=== PATIENT | female | born 1980 | race Caucasian/White ===

== ENCOUNTER → 2018-02-05 11:11 | Day surgery (SDC) | payer BC ==
[~2018-02-05 11:11] MED LIST: Heparin 2 UNITS/ML IVPREMIX* 3,000 ML IV ONE; Iohexol 350 (CONTRAST) 200 ML MDV IV ONE; LORazepam TAB(*) 1 MG ONE; Lidocaine 1% INJ* 10 MG/ML 30 ML SDV ONE; Midazolam* 1 MG/ML 5 ML VIAL (5 MG) ONE; Naproxen TAB* 250 MG ONE; Polidocanol 1% 20 MG/2 ML AMP IV ONE; fentaNYL* 50 MCG/ML 2 ML VIAL (100 MCG VIAL) ONE; fentaNYL* 50 MCG/ML 5 ML VIAL (250 MCG VIAL) ONE
[2018-02-05 15:10] VITALS: BP 107/67
--- NOTE | 2018-02-07 18:29 | RAD ---
CPT II Codes: G9500 Procedure(s) performed: 1. Inferior vena cavogram. 2. Pelvic venography specifically including venography of the left renal vein, left ovarian vein and bilateral internal iliac veins Date of service: February 05, 2018 Indication for procedure: Chronic pelvic and lower extremity pain in the presence of lower extremity varicose veins. Comparison: Tilt table venography dated October 13, 2017 Contrast: 90 mL Omnipaque 300 Fluoroscopy Time: 19.6 minutes Vessels Accessed: Percutaneous access was obtained with ultrasound guidance in the right internal jugular vein in the antegrade direction towards the heart. Catheter venography, with the catheter tip located within the lumen of the following veins, was performed at the inferior vena cava, left renal vein, left ovarian vein and branches of the bilateral internal iliac veins . Anesthesia: Conscious sedation with IV Fentanyl and Versed as well as local 1% lidocaine injected locally at the arteriotomy site. Conscious sedation time: Timeout: 1308 hours Case end: 1414 hours Total conscious sedation time: 1 hour and 60 minutes Additional medications: * The patient received 1 mg of p.o. Ativan prior to the onset of the procedure. PROCEDURE NOTE AND INTRAPROCEDURAL IMAGING FINDINGS: Immediately prior to the procedure the patient signed consent after thoroughly discussing all risks, benefits and alternative therapies. The patient was positioned on the fluoroscopy table in the supine position and the right neck was prepped and draped according to standard sterile fashion. The bilateral groins were shaved and prepped and draped as well. Utilizing sonographic guidance, the right internal jugular vein was cannulated with an 18-gauge needle. An ultrasound image was saved. A 0.035" wire was slowly and smoothly advanced into the inferior vena cava under fluoroscopic imaging. With the wire securing percutaneous venous access, the needle was removed and a 5-Nepalese SideArm access sheath was advanced under fluoroscopic control into the superior vena cava in the antegrade direction towards the heart securing access. Over the wire a 5-Nepalese C2 catheter was utilized to select the left renal vein. Utilizing a combination of 0.035" wire and 5-[place]alese catheter the left renal vein was cannulated. Contrast venography with the catheter tip in the left renal vein demonstrates brisk flow out of the left renal vein into the IVC and towards the heart. There is no reflux documented in the left ovarian vein. Utilizing the catheter and hydrophilic wire the left ovarian vein was directly cannulated. Gentle contrast injection into the left ovarian vein demonstrates the vein to be approximately 5 mm or less in diameter. No reflux was documented. Attempts to advance a 5-Nepalese catheter over the wire down the left ovarian vein into the pelvis were met with resistance in this endeavor was abandoned. Next, utilizing a hydrophilic wire and the 5-Nepalese curved tip catheter the right internal iliac vein was accessed. Direct contrast venography in the right internal iliac vein does not demonstrate any pathologically dilated veins in the pelvis. There are several small veins filling the midline pelvis and crossing to the left side but these do not exceed 5 mm in diameter. There were no branch right internal iliac veins that seemed safely amenable to either followed or coil embolization. Utilizing the catheter and hydrophilic wire the left internal iliac vein was accessed and contrast venography was performed in multiple projections in multiple branches. There was one vein exhibiting a small amount of venous pooling that measured approximately 5 mm in diameter but eventually the vein washed out (series 13 image 1). Similar to the right side there were no veins identified that seemed amenable to embolization or that embolization could be safely performed without excessive threat of nontarget embolization. At this point the procedure was determined that embolization could not be safely performed and the clinical value of embolization in this woman was questioned. Over the wire the catheter and wire were removed. The access sheath was removed from the right internal jugular vein. Gentle manual pressure was held at the right internal jugular venotomy site for approximately 10 minutes. Bleeding was controlled and the site was dressed with sterile gauze. The patient tolerated the procedure well and was transferred to interventional radiology holding bay for standard post procedural observation. SUMMARY OF PROCEDURE, IMAGING FINDINGS AND INTERVENTIONS PERFORMED: 1. Diagnostic studies performed: * Venous access was obtained at the right internal jugular vein in the antegrade direction (i.e. towards the heart) with ultrasound guidance. A sonographic image was recorded. * Diagnostic catheter venography (necessary to accurately perform appropriate interventions) was performed with the catheter tip in the inferior vena cava, left renal vein, left ovarian vein and bilateral internal iliac veins. * Catheter venography was performed of the inferior vena cava, left renal vein, left ovarian vein, bilateral internal iliac veins and branch veins of the pelvis * 2. Interpretation of diagnostic studies performed: * Brisk flow through the left renal vein into the IVC indicates the absence of a cracker syndrome. * The left renal vein is normal in size and does not exhibit any reflux. * Top normal veins are identified in the pelvis during injection of the bilateral internal iliac veins but there is no long-term pooling of contrast. * In the course of acquiring venograms I questioned the clinical value of venous embolization in this woman. Furthermore due to the brisk flow in the pelvis the risk of nontarget embolization either with bone sclerosis or coil embolization seen to high to pursue that endeavor. * 3. Surgical interventions performed: * The anticipated venous embolization was aborted. Plan: 1. The patient's relevant imaging has been some along with a formal consultation to Balta Prasad DO for the purpose of a second opinion regarding Chula's potential pelvic congestion syndrome. 2. I have discussed the imaging findings and Chula's clinical history with Dr. Prasad. 3. If it is determined that the patient will not derive benefit from abdominal pelvic venous intervention likely she will be advised to pursue superficial vein sclerosis with Dr. Hills. The above plan has been discussed with Chula and her prior to discharge from [facility] [place] on February 05, 2018.
== END | disposition home or self-care (01) ==
LOC: CHICATH 11:11
PROVIDERS: ATTEND Radiology Diagnostic Radiology
DX: R10.2 Pelvic and perineal pain (principal)
CPT/HCPCS: 76937; 99156; 99157; A9270-GY; C1769; C1887; J1644; J2250; J3010